=== PATIENT | female | born 1930 | race Caucasian/White ===

== ENCOUNTER 2017-03-26 09:01 | Inpatient (IN) | payer OTHER ==
[2017-03-26] VITALS (15 sets, daily range): BP systolic 121–141; BP diastolic 56–81
[~2017-03-26] VITALS: Ht 160 cm; Wt 52.6 kg
[~2017-03-26 09:01] MED LIST: ATOR20TA40 PO; CARV6.252 PO; LEVO500T6 PO
[2017-03-26] MEDS ORDERED: NACL 0.9% 500 ML IV ONE (09:15)
[2017-03-26 09:56] LABS: WHITE BLOOD COUNT (AUTO) 13.1 K/uL (4.8-10.8)
[2017-03-26 09:59] LABS: HEMATOCRIT 21.2 % (36-48); MEAN CORPUSCULAR HEMOGLOBIN 33 pg (27-31); MEAN CORPUSCULAR HGB CONC 32 g/dL (33-37); MEAN CORPUSCULAR VOLUME 104 fL (80-94); PLATELET COUNT (AUTO) 476 K/uL (140-450); RED BLOOD CELL COUNT(AUTO) 2.04 MIL/uL (4.20-5.40); RED CELL DISTRIBUTION WIDTH 18.1 % (11.6-13.7)
[2017-03-26] MEDS ORDERED: WARF2.5T77 PO (10:00)
[2017-03-26] MEDS ORDERED: ALLO100T21 PO (10:00)
[2017-03-26] MEDS ORDERED: AMLO5TAB PO (10:04)
[2017-03-26] MEDS ORDERED: SODI650T2 PO (10:06)
[2017-03-26] MEDS ORDERED: ROC.25 PO (10:07)
[2017-03-26] MEDS ORDERED: VITD1000 PO (10:08)
[2017-03-26] MEDS ORDERED: ALBU0.0912 IH (10:09)
[2017-03-26] MEDS ORDERED: WARF3TAB PO (10:11)
[2017-03-26 10:12] LABS: HEMOGLOBIN 6.8 g/dL (12.0-16.0)
[2017-03-26 10:13] LABS: ALBUMIN 2.9 g/dL (3.4-5.0); ANION GAP 19.5 (8-16); ASPARTATE AMINOTRANSFERASE 29 U/L (15-37); CHLORIDE 109 mmol/L (98-107); CREATININE 3.7 mg/dL (0.6-1.3); GLUCOSE 218 mg/dL (74-106); LYMPHOCYTES % (MANUAL) 8 % (20-46); MONOCYTES % (MANUAL) 3 % (5-12); POTASSIUM 3.5 mmol/L (3.5-5.1); SODIUM SERUM 141 mmol/L (136-145); TOTAL BILIRUBIN 0.4 mg/dL (0.0-1.0)
[2017-03-26 10:16] LABS: PROTHROMBIN TIME 18.9 secs (10.8-13.4)
[2017-03-26 10:17] LABS: UREA NITROGEN, BLOOD 73 mg/dL (7-18)
[2017-03-26] MEDS ORDERED: PIPERACILLIN/TAZOBACTAM 3.375 GM in DEXTROSE 5% 50 ML IV ONE (10:25)
[2017-03-26] MEDS ORDERED: NACL 0.9% 1,000 ML IV ONE (10:25)
[2017-03-26] MEDS ORDERED: FUROSEMIDE 20 MG/2 ML VIAL IVP ONE (10:25)
[2017-03-26] MEDS ORDERED: VANCOMYCIN 1,000 MG in DEXTROSE 5% 250 ML IV ONE (10:25)
[2017-03-26] MEDS ORDERED: PIPERACILLIN/TAZOBACTAM 3.375 GM VIAL IV ONE (10:36)
[2017-03-26] MEDS ORDERED: VANCOMYCIN 1,000 MG VIAL ONE (10:37)
[2017-03-26] MEDS ORDERED: NACL 0.9% 1,000 ML IV SCH (10:41)
[2017-03-26] MEDS ORDERED: ONDANSETRON 4 MG/2 ML VIAL IVP PRN (10:45)
[2017-03-26] MEDS ORDERED: ACETAMINOPHEN 325 MG TAB PO PRN (10:45)
[2017-03-26] MEDS ORDERED: HYDROcodone/APAP 7.5/325 MG 1 TAB PO PRN (10:45)
[2017-03-26 11:19] LABS: CHOL/HDL RATIO 3.6 (1-4.5); FREE T4 (FREE THYROXINE) 1.06 ng/dL (0.76-1.46); PHOSPHORUS 5.2 mg/dL (2.5-4.9); THYROID STIMULATING HORMONE 3.32 uIU/mL (0.34-3.74)
[2017-03-26] MEDS ORDERED: ALBUTEROL SULFATE/IPRATROPIU 3 ML SOL IH PRN (12:40)
[2017-03-26] MEDS ORDERED: NITROGLYCERIN 0.4 MG TAB SL PRN (12:40)
[2017-03-26] MEDS ORDERED: LACTOBACILLUS RHAMNOSUS GG 1 EACH CAP PO SCH (13:58)
[2017-03-26] MEDS ORDERED: FUROSEMIDE 40 MG/4 ML VIAL IVP SCH (14:34)
[2017-03-26] MEDS ORDERED: EPOETIN ALFA 10,000 UNITS/ML VIAL SUBQ SCH (14:35)
[2017-03-26] MEDS ORDERED: DOCUSATE SODIUM 250 MG GELCAP PO SCH (15:00)
[2017-03-26] MEDS: FERRIC GLUCONATE 125 MG in NACL 0.9% 100 ML IV SCH (16:21)
[2017-03-26] MEDS: SODIUM BICARBONATE 650 MG TAB PO SCH (16:24)
[2017-03-26] MEDS: NACL 0.9% 1,000 ML IV SCH (16:25)
[2017-03-26] MEDS: CALCIUM ACETATE 667 MG TAB PO SCH (16:25)
[2017-03-26] MEDS: ALBUTEROL SULFATE/IPRATROPIU 3 ML SOL IH SCH (19:01)
[2017-03-26 20:09] LABS: BASOPHILS % (AUTO) 0.3 % (0.0-2.0); EOSINOPHILS # (AUTO) 0.1 K/uL (0-0.4); EOSINOPHILS % (AUTO) 0.7 % (0.0-4.0); HEMATOCRIT 26.6 % (36-48); HEMOGLOBIN 8.6 g/dL (12.0-16.0); LYMPHOCYTES % (AUTO) 8.4 % (20.5-51.1); MEAN CORPUSCULAR HEMOGLOBIN 32 pg (27-31); MEAN CORPUSCULAR HGB CONC 33 g/dL (33-37); MEAN CORPUSCULAR VOLUME 100 fL (80-94); MONOCYTES # (AUTO) 0.1 K/uL (0.8-1.0); MONOCYTES % (AUTO) 1.2 % (1.7-9.3); NEUTROPHILS # (AUTO) 10.9 K/uL (1.8-7.7); NEUTROPHILS % (AUTO) 89.4 % (42.2-75.2); PLATELET COUNT (AUTO) 412 K/uL (140-450); RED BLOOD CELL COUNT(AUTO) 2.67 MIL/uL (4.20-5.40); RED CELL DISTRIBUTION WIDTH 22.1 % (11.6-13.7); WHITE BLOOD COUNT (AUTO) 12.1 K/uL (4.8-10.8)
[2017-03-26 20:18] LABS: APPEARANCE,URINE CLEAR (CLEAR); BILIRUBIN,URINE NEGATIVE (NEGATIVE); BLOOD, URINE 2+ (NEGATIVE); COLOR,URINE YELLOW (YELLOW); LEUKOCYTE ESTERASE ,URINE NEGATIVE (NEGATIVE); NITRITE, URINE NEGATIVE (NEGATIVE); UGLUCOSE NEGATIVE (NEGATIVE)
[2017-03-26 20:34] LABS: RBC,URINE 0-5 /HPF (0-5); WBC,URINE 0-3 /HPF (0-5)
[2017-03-26] MEDS ORDERED: ATORVASTATIN 20 MG TAB PO SCH (21:00)
[2017-03-26] MEDS ORDERED: DOCUSATE SODIUM 100 MG GELCAP PO SCH (21:00)
[2017-03-26] MEDS ORDERED: WARFARIN 2.5 MG TAB PO SCH (21:00)
[2017-03-26] MEDS: ATORVASTATIN 20 MG TAB PO SCH (21:00)
[2017-03-26] MEDS: FUROSEMIDE 40 MG/4 ML VIAL IVP SCH (21:01)
[2017-03-26] MEDS: METOPROLOL 25 MG TAB PO SCH (21:01)
[2017-03-26] MEDS ORDERED: PIPERACILLIN/TAZOBACTAM 2.25 GM VIAL IV ONE (21:56)
[2017-03-26] MEDS: amLODIPine 5 MG TAB PO SCH (22:17)
[2017-03-26] MEDS: PIPER/TAZO 2.25GM/D5W PREMIX 50 ML IV SCH (22:33)
[2017-03-27] VITALS (24 sets, daily range): BP systolic 115–141; BP diastolic 57–100
[2017-03-27] MEDS ORDERED: diphenhydrAMINE 50 MG/ML VIAL IVP ONE (01:55)
[2017-03-27] MEDS: PIPER/TAZO 2.25GM/D5W PREMIX 50 ML IV SCH ×3 (04:37→21:03)
[2017-03-27] MEDS: FUROSEMIDE 40 MG/4 ML VIAL IVP SCH ×3 (06:12→21:03)
[2017-03-27 07:10] LABS: HEMATOCRIT 26.9 % (36-48); HEMOGLOBIN 8.6 g/dL (12.0-16.0); MEAN CORPUSCULAR HEMOGLOBIN 32 pg (27-31); MEAN CORPUSCULAR HGB CONC 32 g/dL (33-37); MEAN CORPUSCULAR VOLUME 99 fL (80-94); PLATELET COUNT (AUTO) 483 K/uL (140-450); RED BLOOD CELL COUNT(AUTO) 2.73 MIL/uL (4.20-5.40); RED CELL DISTRIBUTION WIDTH 22.7 % (11.6-13.7)
[2017-03-27] MEDS: ALBUTEROL SULFATE/IPRATROPIU 3 ML SOL IH SCH ×3 (07:10→19:04)
[2017-03-27 07:18] LABS: ANION GAP 20.3 (8-16); CARBON DIOXIDE 16.3 mmol/L (21-32); CHLORIDE 111 mmol/L (98-107); CREATININE 3.6 mg/dL (0.6-1.3); GLUCOSE 144 mg/dL (74-106); MAGNESIUM 1.7 mg/dL (1.8-2.4); PHOSPHORUS 5.4 mg/dL (2.5-4.9); POTASSIUM 3.6 mmol/L (3.5-5.1); SODIUM SERUM 144 mmol/L (136-145)
[2017-03-27 07:22] LABS: UREA NITROGEN, BLOOD 68 mg/dL (7-18)
[2017-03-27 08:02] LABS: LYMPHOCYTES % (MANUAL) 2 % (20-46); MONOCYTES % (MANUAL) 3 % (5-12)
[2017-03-27] MEDS: LACTOBACILLUS RHAMNOSUS GG 1 EACH CAP PO SCH (08:09)
[2017-03-27] MEDS: CALCIUM ACETATE 667 MG TAB PO SCH ×3 (08:09→16:13)
[2017-03-27] MEDS: DOCUSATE SODIUM 250 MG GELCAP PO SCH (08:09)
[2017-03-27] MEDS: SODIUM BICARBONATE 650 MG TAB PO SCH ×2 (08:09→16:13)
[2017-03-27] MEDS: CHOLECALCIFEROL 1,000 IU TAB PO SCH (08:10)
[2017-03-27] MEDS: LISINOPRIL 5 MG TAB PO SCH (08:10)
[2017-03-27] MEDS: ALLOPURINOL 100 MG TAB PO SCH (08:10)
[2017-03-27] MEDS: METOPROLOL 25 MG TAB PO SCH ×2 (08:10→21:05)
[2017-03-27] MEDS: CALCITRIOL 0.25 MCG CAPLF PO SCH (08:11)
[2017-03-27] MEDS ORDERED: PANTOPRAZOLE 40 MG INJ VIAL IVP SCH (09:00)
[2017-03-27] MEDS: PANTOPRAZOLE 40 MG INJ VIAL IVP SCH ×2 (10:20→21:03)
[2017-03-27] MEDS ORDERED: SUCRALFATE 1 GM TAB PO SCH (11:10)
[2017-03-27] MEDS: SUCRALFATE 1 GM TAB PO SCH ×2 (11:11→21:04)
[2017-03-27] MEDS: NACL 0.9% 1,000 ML IV SCH (12:52)
[2017-03-27 13:32] LABS: FERRITIN 73 ng/mL (15 - 150); FOLIC ACID > 20.00 ng/mL (>3.0); TRANSFERRIN 14 mg/dL (200 - 370)
[2017-03-27] MEDS ORDERED: EPOETIN ALFA 20,000 UNITS/ML VIAL IV SCH (13:35)
[2017-03-27] MEDS: FERRIC GLUCONATE 125 MG in NACL 0.9% 100 ML IV SCH (16:13)
[2017-03-27] MEDS ORDERED: MAGNESIUM OXIDE 400 MG TAB PO SCH (17:30)
[2017-03-27] MEDS ORDERED: CALCIUM ACETATE 667 MG TAB PO SCH (17:35)
[2017-03-27] MEDS: DEXT 5% / NACL 0.45% 1,000 ML IV SCH (18:24)
[2017-03-27] MEDS ORDERED: WARFARIN 1 MG TAB PO SCH (21:00)
[2017-03-27] MEDS ORDERED: PIPER/TAZO 2.25GM/D5W PREMIX 50 ML IV SCH (21:00)
[2017-03-27] MEDS: ATORVASTATIN 20 MG TAB PO SCH (21:04)
[2017-03-27] MEDS: amLODIPine 5 MG TAB PO SCH (21:04)
[2017-03-27] MEDS ORDERED: NITROGLYCERIN 0.4 MG TAB SL PRN (23:45)
[2017-03-28] VITALS (23 sets, daily range): BP systolic 91–132; BP diastolic 45–81
[2017-03-28] MEDS ORDERED: LORazepam 2 MG/ML VIAL IVP ONE (00:50)
[2017-03-28 05:02] LABS: BASOPHILS # (AUTO) 0.1 K/uL (0.00-0.22); BASOPHILS % (AUTO) 0.5 % (0.0-2.0); EOSINOPHILS # (AUTO) 0.2 K/uL (0-0.4); HEMATOCRIT 25.1 % (36-48); LYMPHOCYTES # (AUTO) 0.9 K/uL (2.5-16.5); LYMPHOCYTES % (AUTO) 7.7 % (20.5-51.1); MEAN CORPUSCULAR HEMOGLOBIN 31 pg (27-31); MEAN CORPUSCULAR HGB CONC 32 g/dL (33-37); MEAN CORPUSCULAR VOLUME 98 fL (80-94); MONOCYTES # (AUTO) 0.4 K/uL (0.8-1.0); MONOCYTES % (AUTO) 3.4 % (1.7-9.3); NEUTROPHILS # (AUTO) 10.7 K/uL (1.8-7.7); NEUTROPHILS % (AUTO) 86.4 % (42.2-75.2); PLATELET COUNT (AUTO) 431 K/uL (140-450); RED BLOOD CELL COUNT(AUTO) 2.56 MIL/uL (4.20-5.40); RED CELL DISTRIBUTION WIDTH 22.4 % (11.6-13.7)
[2017-03-28] MEDS: PIPER/TAZO 2.25GM/D5W PREMIX 50 ML IV SCH ×3 (05:02→20:13)
[2017-03-28] MEDS: FUROSEMIDE 40 MG/4 ML VIAL IVP SCH ×3 (05:02→20:14)
[2017-03-28 05:21] LABS: ANION GAP 14.5 (8-16); CARBON DIOXIDE 23.5 mmol/L (21-32); CHLORIDE 110 mmol/L (98-107); GLUCOSE 111 mg/dL (74-106); SODIUM SERUM 145 mmol/L (136-145)
[2017-03-28 05:51] LABS: MAGNESIUM 1.7 mg/dL (1.8-2.4); PHOSPHORUS 4.2 mg/dL (2.5-4.9)
[2017-03-28 05:59] LABS: UREA NITROGEN, BLOOD 73 mg/dL (7-18)
[2017-03-28 06:10] LABS: WHITE BLOOD COUNT (AUTO) 12.3 K/uL (4.8-10.8)
[2017-03-28] MEDS ORDERED: MAG SULF 2000 MG/WATER PREMIX 50 ML IV ONE ×2 (06:10→11:00)
[2017-03-28] MEDS ORDERED: KCL 20 MEQ/WATER INJ PREMIX 200 ML IV ONE (06:10)
[2017-03-28] MEDS: ALBUTEROL SULFATE/IPRATROPIU 3 ML SOL IH SCH ×3 (07:46→19:32)
[2017-03-28] MEDS: CHOLECALCIFEROL 1,000 IU TAB PO SCH (08:09)
[2017-03-28] MEDS: LACTOBACILLUS RHAMNOSUS GG 1 EACH CAP PO SCH (08:10)
[2017-03-28] MEDS: CALCITRIOL 0.25 MCG CAPLF PO SCH (08:10)
[2017-03-28] MEDS: SODIUM BICARBONATE 650 MG TAB PO SCH ×2 (08:10→17:06)
[2017-03-28] MEDS: SUCRALFATE 1 GM TAB PO SCH ×2 (08:10→20:14)
[2017-03-28] MEDS: CALCIUM ACETATE 667 MG TAB PO SCH ×3 (08:10→17:07)
[2017-03-28] MEDS: LISINOPRIL 5 MG TAB PO SCH (08:11)
[2017-03-28] MEDS: METOPROLOL 25 MG TAB PO SCH ×2 (08:11→20:15)
[2017-03-28] MEDS: DOCUSATE SODIUM 250 MG GELCAP PO SCH (08:11)
[2017-03-28] MEDS: ALLOPURINOL 100 MG TAB PO SCH (08:12)
[2017-03-28] MEDS: PANTOPRAZOLE 40 MG INJ VIAL IVP SCH ×2 (08:12→20:14)
[2017-03-28] MEDS ORDERED: PROBIOTIC SCREEN 1 EA MISC MC PRN (14:15)
[2017-03-28] MEDS: FERRIC GLUCONATE 125 MG in NACL 0.9% 100 ML IV SCH (17:06)
[2017-03-28] MEDS: DEXT 5% / NACL 0.45% 1,000 ML IV SCH ×2 (17:07→18:05)
[2017-03-28] MEDS: amLODIPine 5 MG TAB PO SCH (20:13)
[2017-03-28] MEDS: ATORVASTATIN 20 MG TAB PO SCH (20:14)
[2017-03-29] VITALS (17 sets, daily range): BP systolic 80–132; BP diastolic 38–67
[2017-03-29 04:45] LABS: BASOPHILS # (AUTO) 0.3 K/uL (0.00-0.22); BASOPHILS % (AUTO) 2.6 % (0.0-2.0); EOSINOPHILS # (AUTO) 0.2 K/uL (0-0.4); EOSINOPHILS % (AUTO) 1.6 % (0.0-4.0); HEMATOCRIT 24.9 % (36-48); HEMOGLOBIN 7.9 g/dL (12.0-16.0); LYMPHOCYTES # (AUTO) 1.2 K/uL (2.5-16.5); LYMPHOCYTES % (AUTO) 12.2 % (20.5-51.1); MEAN CORPUSCULAR HEMOGLOBIN 32 pg (27-31); MEAN CORPUSCULAR HGB CONC 32 g/dL (33-37); MEAN CORPUSCULAR VOLUME 100 fL (80-94); MONOCYTES # (AUTO) 0.2 K/uL (0.8-1.0); MONOCYTES % (AUTO) 2.2 % (1.7-9.3); NEUTROPHILS # (AUTO) 8.1 K/uL (1.8-7.7); NEUTROPHILS % (AUTO) 81.4 % (42.2-75.2); PLATELET COUNT (AUTO) 399 K/uL (140-450); RED BLOOD CELL COUNT(AUTO) 2.49 MIL/uL (4.20-5.40); RED CELL DISTRIBUTION WIDTH 22.5 % (11.6-13.7)
[2017-03-29 05:08] LABS: MAGNESIUM 2.7 mg/dL (1.8-2.4); PHOSPHORUS 4.5 mg/dL (2.5-4.9)
[2017-03-29 05:09] LABS: ANION GAP 14.2 (8-16); CARBON DIOXIDE 26.2 mmol/L (21-32); CHLORIDE 108 mmol/L (98-107); GLUCOSE 101 mg/dL (74-106); POTASSIUM 3.4 mmol/L (3.5-5.1); SODIUM SERUM 145 mmol/L (136-145)
[2017-03-29] MEDS: PIPER/TAZO 2.25GM/D5W PREMIX 50 ML IV SCH ×3 (05:19→22:12)
[2017-03-29] MEDS: FUROSEMIDE 40 MG/4 ML VIAL IVP SCH ×3 (05:20→22:03)
[2017-03-29 05:28] LABS: CREATININE 4.8 mg/dL (0.6-1.3); UREA NITROGEN, BLOOD 79 mg/dL (7-18)
[2017-03-29] MEDS: ALBUTEROL SULFATE/IPRATROPIU 3 ML SOL IH SCH ×3 (06:58→19:21)
[2017-03-29] MEDS ORDERED: EPOETIN ALFA 10,000 UNITS/ML VIAL SUBQ SCH (09:00)
[2017-03-29] MEDS: METOPROLOL 25 MG TAB PO SCH ×2 (09:00→22:00)
[2017-03-29] MEDS: LISINOPRIL 5 MG TAB PO SCH (09:00)
[2017-03-29] MEDS: PANTOPRAZOLE 40 MG INJ VIAL IVP SCH ×2 (09:19→22:02)
[2017-03-29] MEDS: LACTOBACILLUS RHAMNOSUS GG 1 EACH CAP PO SCH (09:20)
[2017-03-29] MEDS: SUCRALFATE 1 GM TAB PO SCH ×2 (09:20→22:04)
[2017-03-29] MEDS: SODIUM BICARBONATE 650 MG TAB PO SCH ×2 (09:20→17:15)
[2017-03-29] MEDS: DOCUSATE SODIUM 250 MG GELCAP PO SCH (09:21)
[2017-03-29] MEDS: CALCIUM ACETATE 667 MG TAB PO SCH ×3 (09:21→17:16)
[2017-03-29] MEDS: ALLOPURINOL 100 MG TAB PO SCH (09:21)
[2017-03-29] MEDS: CHOLECALCIFEROL 1,000 IU TAB PO SCH (09:22)
[2017-03-29] MEDS: CALCITRIOL 0.25 MCG CAPLF PO SCH (09:22)
[2017-03-29] MEDS ORDERED: POTASSIUM CHLORIDE 40 MEQ, LIDOCAINE 1% 25 MG in NACL 0.9% 250 ML IV SCH (11:00)
[2017-03-29] MEDS: FERRIC GLUCONATE 125 MG in NACL 0.9% 100 ML IV SCH (15:51)
[2017-03-29] MEDS: DEXT 5% / NACL 0.45% 1,000 ML IV SCH (17:37)
[2017-03-29] MEDS: amLODIPine 5 MG TAB PO SCH (22:00)
[2017-03-29] MEDS: ATORVASTATIN 20 MG TAB PO SCH (22:04)
[2017-03-30] VITALS: BP 102/46
[2017-03-30 04:00] VITALS: BP 110/51
[2017-03-30] MEDS: FUROSEMIDE 40 MG/4 ML VIAL IVP SCH ×2 (05:00→12:05)
[2017-03-30 05:25] VITALS: BP 98/57
[2017-03-30] MEDS: PIPER/TAZO 2.25GM/D5W PREMIX 50 ML IV SCH ×2 (05:32→12:05)
[2017-03-30 06:00] VITALS: BP 125/55
[2017-03-30 06:24] LABS: BASOPHILS # (AUTO) 0.2 K/uL (0.00-0.22); BASOPHILS % (AUTO) 2.1 % (0.0-2.0); EOSINOPHILS # (AUTO) 0.2 K/uL (0-0.4); EOSINOPHILS % (AUTO) 1.9 % (0.0-4.0); HEMOGLOBIN 7.8 g/dL (12.0-16.0); LYMPHOCYTES # (AUTO) 0.5 K/uL (2.5-16.5); LYMPHOCYTES % (AUTO) 5.5 % (20.5-51.1); MEAN CORPUSCULAR HEMOGLOBIN 32 pg (27-31); MEAN CORPUSCULAR HGB CONC 32 g/dL (33-37); MEAN CORPUSCULAR VOLUME 100 fL (80-94); MONOCYTES # (AUTO) 0.3 K/uL (0.8-1.0); MONOCYTES % (AUTO) 2.8 % (1.7-9.3); NEUTROPHILS # (AUTO) 7.9 K/uL (1.8-7.7); NEUTROPHILS % (AUTO) 87.7 % (42.2-75.2); PLATELET COUNT (AUTO) 384 K/uL (140-450); RED BLOOD CELL COUNT(AUTO) 2.41 MIL/uL (4.20-5.40); RED CELL DISTRIBUTION WIDTH 22.1 % (11.6-13.7)
[2017-03-30 06:40] LABS: ANION GAP 16.6 (8-16); CARBON DIOXIDE 24.5 mmol/L (21-32); CHLORIDE 103 mmol/L (98-107); GLUCOSE 100 mg/dL (74-106); MAGNESIUM 2.4 mg/dL (1.8-2.4); PHOSPHORUS 3.9 mg/dL (2.5-4.9); POTASSIUM 4.1 mmol/L (3.5-5.1); SODIUM SERUM 140 mmol/L (136-145)
[2017-03-30 06:42] LABS: CREATININE 5.2 mg/dL (0.6-1.3); UREA NITROGEN, BLOOD 79 mg/dL (7-18)
[2017-03-30] MEDS: ALBUTEROL SULFATE/IPRATROPIU 3 ML SOL IH SCH (07:09)
[2017-03-30 07:13] LABS: WHITE BLOOD COUNT (AUTO) 9.1 K/uL (4.8-10.8)
[2017-03-30] MEDS: CALCIUM ACETATE 667 MG TAB PO SCH ×2 (07:47→12:05)
[2017-03-30 08:00] VITALS: BP 108/48
[2017-03-30] MEDS: CHOLECALCIFEROL 1,000 IU TAB PO SCH (08:24)
[2017-03-30] MEDS: SODIUM BICARBONATE 650 MG TAB PO SCH (08:24)
[2017-03-30] MEDS: SUCRALFATE 1 GM TAB PO SCH (08:24)
[2017-03-30] MEDS: CALCITRIOL 0.25 MCG CAPLF PO SCH (08:24)
[2017-03-30] MEDS: PANTOPRAZOLE 40 MG INJ VIAL IVP SCH (08:24)
[2017-03-30] MEDS: DOCUSATE SODIUM 250 MG GELCAP PO SCH (08:25)
[2017-03-30] MEDS: LACTOBACILLUS RHAMNOSUS GG 1 EACH CAP PO SCH (08:25)
[2017-03-30] MEDS: ALLOPURINOL 100 MG TAB PO SCH (08:25)
[2017-03-30] MEDS: LISINOPRIL 5 MG TAB PO SCH (09:00)
[2017-03-30] MEDS: METOPROLOL 25 MG TAB PO SCH (09:00)
[2017-03-30] MEDS ORDERED: METO25TA PO ×2 (09:07→09:25)
[2017-03-30] MEDS ORDERED: ACET-9529 PO (09:07)
[2017-03-30] MEDS ORDERED: SUCR1TAB35 PO (09:07)
[2017-03-30] MEDS ORDERED: PANT40EC PO (09:07)
[2017-03-30] MEDS ORDERED: DOCU-463 PO (09:07)
[2017-03-30] MEDS ORDERED: LISI-424 PO (09:25)
[2017-03-30] MEDS ORDERED: FURO-570 PO (09:35)
[2017-03-30 12:00] VITALS: BP 120/55
[2017-03-30] MEDS ORDERED: PANT40PD7 IVP (14:33)
[2017-03-30] MEDS ORDERED: PIPE50SO5 IV (14:33)
[2017-03-30] MEDS ORDERED: LEVO750T2 PO (14:49)
[2017-03-30] MEDS ORDERED: LACT1CAP59 PO (14:50)
[2017-03-30 18:31] LABS: FOLIC ACID > 20.00 ng/mL (>3.0)
[2017-03-31] MEDS ORDERED: WARF2.5T1 PO (14:07)
[2017-03-31] MEDS ORDERED: COU1 PO (14:07)
== END 2017-03-30 15:00 | disposition hospice, home (50) | DRG 871 ==
LOC: MED 09:01 → MIC 10:41 → MTU 03-29 17:45
PROVIDERS: ADMIT Family Medicine; ATTEND Family Medicine
PROC: 30233N1 Transfusion of Nonautologous Red Blood Cells into Peripheral Vein, Percutaneous Approach (ICD-10-PCS; principal; 2017-03-26)
PROC: 5A09457 Assistance with Respiratory Ventilation, 24-96 Consecutive Hours, Continuous Positive Airway Pressure (ICD-10-PCS; 2017-03-26)
DX: A41.9 Sepsis, unspecified organism (principal); J69.0 Pneumonitis due to inhalation of food and vomit; N17.0 Acute kidney failure with tubular necrosis; J96.01 Acute respiratory failure with hypoxia; I21.3 ST elevation (STEMI) myocardial infarction of unspecified site; I63.9 Cerebral infarction, unspecified; R65.21 Severe sepsis with septic shock; E43 Unspecified severe protein-calorie malnutrition; I48.2 Chronic atrial fibrillation; N18.4 Chronic kidney disease, stage 4 (severe); I42.9 Cardiomyopathy, unspecified; I50.41 Acute combined systolic (congestive) and diastolic (congestive) heart failure; I13.0 Hypertensive heart and chronic kidney disease with heart failure and stage 1 through stage 4 chronic kidney disease, or unspecified chronic kidney disease; K92.1 Melena; Z96.649 Presence of unspecified artificial hip joint; E11.22 Type 2 diabetes mellitus with diabetic chronic kidney disease; I27.2 Other secondary pulmonary hypertension; E83.42 Hypomagnesemia; E87.6 Hypokalemia; E87.8 Other disorders of electrolyte and fluid balance, not elsewhere classified; I07.1 Rheumatic tricuspid insufficiency; D63.8 Anemia in other chronic diseases classified elsewhere; M10.9 Gout, unspecified; E83.51 Hypocalcemia; E78.5 Hyperlipidemia, unspecified; K21.9 Gastro-esophageal reflux disease without esophagitis; I35.0 Nonrheumatic aortic (valve) stenosis; J44.9 Chronic obstructive pulmonary disease, unspecified; D50.9 Iron deficiency anemia, unspecified; I34.0 Nonrheumatic mitral (valve) insufficiency; I48.91 Unspecified atrial fibrillation; E83.39 Other disorders of phosphorus metabolism; Z88.6 Allergy status to analgesic agent; Z86.73 Personal history of transient ischemic attack (TIA), and cerebral infarction without residual deficits; Z83.3 Family history of diabetes mellitus; Z87.891 Personal history of nicotine dependence; Z68.20 Body mass index [BMI] 20.0-20.9, adult; Z79.01 Long term (current) use of anticoagulants
CPT/HCPCS: 36415; 36600; 71010; 80048; 80053; 81001; 82140; 82150; 82272; 82607; 82728; 82746; 82803; 83036; 83540; 83605; 83690; 83735; 83880; 84100; 84439; 84443; 84484; 84550; 85025; 85045; 85379; 85610; 85730; 86886; 86900; 86901; 86920; 87040; 87045; 87081; 87086; 89055; 93005; 94640; 94660; 96361; 96374; 96375; 99285; C9113; J0885; J1200; J1940; J2001; J2060; J2543; J2916; J3370; J3475; J3480; J7030; J7060; J7620; P9016; Q0092